=== PATIENT | male | born 1995 | race Caucasian/White ===

== ENCOUNTER 2017-10-17 18:09 | Emergency (ER) | payer OTHER ==
[~2017-10-17] VITALS: Ht 177.8 cm; Wt 64.9 kg
[~2017-10-17 18:09] MED LIST: NABUMETONE500 MG PO; PERCOCET 5/3251 TAB PO
[2017-10-17] MEDS ORDERED: KEPPRA750 MG (18:26)
== END 2017-10-17 19:35 | disposition home or self-care (01) ==
LOC: ER 18:09
DX: S50.812A Abrasion of left forearm, initial encounter (principal); W45.8XXA Other foreign body or object entering through skin, initial encounter; Y93.89 Activity, other specified; Y92.098 Other place in other non-institutional residence as the place of occurrence of the external cause; Y99.8 Other external cause status